=== PATIENT | female | born 1935 | race Two or more races ===

== ENCOUNTER → 2022-01-20 08:00 | Outpatient (CLI) | payer OTHER ==
[~2022-01-20] VITALS: Ht 152.4 cm; Wt 79.8 kg
[~2022-01-20 08:00] MED LIST: COZAAR100 MG PO; GLUMETZA500 MG PO; SINGULAIR10 MG PO
== END | disposition home or self-care (01) ==
LOC: LAB 08:00 → SURH 01-25 10:00 → EDSTATUS 01-25 10:00 → SURH 01-25 12:45
PROVIDERS: ATTEND Orthopaedic Surgery
DX: Z03.818 Encounter for observation for suspected exposure to other biological agents ruled out (principal); I10 Essential (primary) hypertension; M17.12 Unilateral primary osteoarthritis, left knee; M85.662 Other cyst of bone, left lower leg